=== PATIENT | female | born 1950 | race Caucasian/White ===

== ENCOUNTER → 2024-06-08 | Outpatient (CLI) | payer OTHER | END | disposition home or self-care (01) | LOC: RAH 08:21 | PROVIDERS: ATTEND Family Medicine | DX: Z12.31 Encounter for screening mammogram for malignant neoplasm of breast (principal); D24.1 Benign neoplasm of right breast; R92.333 Mammographic heterogeneous density, bilateral breasts | CPT/HCPCS: 77067 ==

== ENCOUNTER → 2024-08-01 | Outpatient (CLI) | payer OTHER ==
--- NOTE | 2024-08-01 12:31 | HMCIMG ---
COLON BARIUM W/WO KUB REASON: MULTIPLR DIVERTICULA, R/O STRICTURE AT 20CM VS SPASM,INCOMPETE COLONOSCOPY COMPARISON: None TECHNIQUE: Air contrast barium enema was performed with fluoroscopic observation, 4 minutes. Multiple spot views are obtained. Routine overhead views were obtained as well. FINDINGS: There is moderate sigmoid and descending colon diverticulosis. There is initial sigmoid spasm. There is no evidence of a discrete focal mass or fixed stricture. Descending colon appears normal. The transverse colon and splenic flexure appear unremarkable as does the hepatic flexure. Multiple attempts were made to inferior. Passage into the cecum. The right colon is markedly redundant. The cecum does appear filled. There is no evidence of mass or obstructing lesion. IMPRESSION: 1. Technically difficult exam due to sigmoid spasm as well as a sending and hepatic flexure colon redundancy. 2. Moderate sigmoid diverticulosis, there is no evidence of fixed stenosis or mass in the sigmoid colon. 3. Otherwise unremarkable exam as described.
== END | disposition home or self-care (01) ==
LOC: RAH 08:57
PROVIDERS: ATTEND Internal Medicine Gastroenterology
DX: K57.30 Diverticulosis of large intestine without perforation or abscess without bleeding (principal); K58.9 Irritable bowel syndrome, unspecified
CPT/HCPCS: 74270

== ENCOUNTER → 2024-10-24 | Outpatient (CLI) | payer OTHER ==
--- NOTE | 2024-10-24 17:31 | HMCSR ---
APPROVED REPORT EXAM: Two-dimensional and M-mode echocardiogram with Doppler and color Doppler. INDICATION ICD: R06.09, R60.0 2D Dimensions RVDd3.6 cmLVEF(%)55.4 (>50%)LVED Vol(simp.)104.5 mL IVSd1.1 (0.7-1.1cm)FS(%)29 %LVES Vol(simp.)32.9 mL LVDd4.6 (3.8-5.6cm)LA (2D)3.3 (1.6-4.0cm)LVEF(%, simp.)69 % PWd1.2 (0.7-1.1cm)LVOT diam2.0 (1.8-2.4cm)LA ESV INDEX (BP)33.67 mL/m2 IVSs1.3 cmIVC diam1.1 cm LVDs3.3 (2.5-4.0cm) PWs1.6 cm M-Mode Dimensions EPSS0.7 cm LA (MM)3.9 (1.6-4.0cm) Ao Root(MM)2.3 (2.0-3.7cm) Aortic Valve AoV Vmax1.6 m/Sammy Peak GR10.7 mmHgLVOT Vmax1.1 m/s AoV VTI0.3 mAo Mean GR5.7 mmHgLVOT VTI0.26 m SRAVANI (VMAX)2.5 cm2AVA (VTI) 2.5 cm2 Mitral Valve MV E Jsjd490.6 cm/sDECEL Gcdj729 msMV Peak GR11 mmHg MV A Xsnh693.3 cm/sP 1/2 T51 msMV Mean GR4 mmHg E/A ratio1.0MVA (PHT)4.3 cm2 TDI E/E' Sbtmhn46.0 Pulmonary Valve PV Vmax1.2 m/s Left Ventricle The left ventricle is normal size. There is normal LV segmental wall motion. Mild concentric left david tricular hypertrophy. LVEF is 55-60%. Stage II, diastolic dysfunction. Right Ventricle The right ventricle is normal size. The right ventricular systolic function is normal. Atria The left atrium is mildly dilated. The right atrium size is normal. Aortic Valve The aortic valve is normal in structure. No aortic regurgitation is present. There is no aortic valvu lar stenosis. Mitral Valve The mitral valve is mildly thickened. There is no mitral valve regurgitation noted. There is no mary l valve stenosis. Tricuspid Valve The tricuspid valve is normal in structure. There is no tricuspid valve regurgitation noted. Pulmonic Valve Pulmonic valve is not well visualized. There is no pulmonic valvular regurgitation. Great Vessels The aortic root is normal in size. The IVC is normal in size and collapses >50% with inspiration. Pericardium There is no pericardial effusion. Other Information Quality : Adequate Conclusion The left ventricle is normal size. LVEF is 55-60% with normal LV segmental wall motion. Mild concentric left ventricular hypertrophy. Stage II, diastolic dysfunction. The right ventricular systolic function is normal. The left atrium is mildly dilated. No hemodynamically significant valvular abnormalities. There is no pericardial effusion.
== END | disposition home or self-care (01) ==
LOC: RAH 10:59
PROVIDERS: ATTEND Family Medicine
DX: I05.9 Rheumatic mitral valve disease, unspecified (principal); R06.09 Other forms of dyspnea; R60.0 Localized edema
CPT/HCPCS: 93306

== ENCOUNTER → 2024-11-09 | Outpatient (CLI) | payer OTHER ==
--- NOTE | 2024-11-09 16:06 | HMCIMG ---
CT CHEST WITHOUT CONTRAST INDICATION: Solitary pulmonary nodule TECHNIQUE: Routine axial images using 5 mm slice thickness were acquired from the lung apices to the bases without the administration of IV contrast.Coronal and sagittal reformatted images acquired for interpretation. CT was performed with one or more of the following dose reduction techniques: Automated exposure control, adjustment of the mA and/or kV according to patient size, or use of iterative reconstruction technique. COMPARISON: None FINDINGS: Subcentimeter lateral right breast calcification. The heart size is normal. Coronary arterial wall calcific plaque noted. No pericardial effusion noted. Negative torta The trachea and airways are patent. 8 mm smoothly-marginated noncavitary nonspiculated nonfatty nodule noted within the posterolateral periphery of the right lower lobe without any surrounding micronodules. Linear scarring within the right middle lobe and lingula. No axillary, hilar, or mediastinal lymphadenopathy. No pleural effusion or pneumothorax identified. Gallbladder is absent. Visible osseous structures are intact. IMPRESSION: 1. 8 mm subpleural right lower lobe nodule. Please see below for recommendations. 2. No evidence for thoracic aortic aneurysm. 3. Arteriosclerotic disease as described. 2017 Guidelines for Management of Incidental Pulmonary Nodules Detected on CT images: Fleischner Society (Radiology 2017). Single Nodule: LOW RISK PATIENT: <6 mm: No follow-up required. 6-8 mm: Follow-up CT at 6-12 months, then CT at 18-24 months. >8 mm: Consider follow-up CT at 3 months, PET/CT , or tissue sampling. HIGH RISK PATIENT: <6 mm: Optional CT at 12 months. (Certain patients at high risk with suspicious nodule morphology, upper lobe location, or both may warrant 12 month follow-up). 6-8 mm: Follow-up CT at 6-12 months, then CT at 18-24 months. >8 mm: Consider follow-up CT at 3 months, PET/CT , or tissue sampling.
== END | disposition home or self-care (01) ==
LOC: RAH 13:37
PROVIDERS: ATTEND Family Medicine
DX: R91.1 Solitary pulmonary nodule (principal); I25.10 Atherosclerotic heart disease of native coronary artery without angina pectoris
CPT/HCPCS: 71250

== ENCOUNTER → 2024-11-29 | Outpatient (CLI) | payer OTHER ==
--- NOTE | 2024-11-29 15:40 | HMCIMG ---
BONE DENSITOMETRY: HISTORY: Wedge compression fracture of fourth lumbar vertebra, initial encounter for COMPARISON: None available FINDINGS: BMD measured at AP spine L1-L4 is 0.869 g/cm2 with a T-score of -1.6 Bone density is between 10 and 25% below young normal. This patient is considered osteopenic. Fracture risk is moderate. BMD measured at Left Femoral Neck is 0.529 g/cm2 with a T-score of -2.9 This patient is considered osteoporotic according to WHO criteria. Fracture risk is high. BMD measured at Left Femoral Total is 0.617 g/cm2 with a T-score of -2.7 This patient is considered osteoporotic according to WHO criteria. Fracture risk is high. IMPRESSION: Osteoporosis of the left hip. High risk for atraumatic fractures. Treatment and follow-up recommended. Osteopenia of the lumbar spine, moderate fracture risk.
--- NOTE | 2024-11-29 16:05 | HMCIMG ---
MRI LUMBAR SPINE WITHOUT CONTRAST INDICATION: S32.040A Wedge compression fracture of fourth lumbar vertebra, initial encounter COMPARISON: None PARAMETERS: Long and short axis fat and water weighted sequences were obtained through the lumbar spine. FINDINGS: Examination provided for interpretation at 4:00 PM on 11/29/2024. Normal lordosis of the lumbar spine is maintained. Chronic moderate L4 vertebral body compression deformity. Remainder of the lumbar vertebral bodies are normal in height, without evidence for acute compression fracture or osseous marrow replacing process. The conus medullaris is normal in signal and terminates at the appropriate level. Multilevel mild anterior endplate osteophytic spurring. T12-L1: No significant disc displacement, neuroforaminal narrowing, or central canal stenosis. No significant facet disease identified. L1-L2: No significant disc displacement, neuroforaminal narrowing, or central canal stenosis. No significant facet disease identified. L2-L3: Extremely shallow right and left foraminal disc displacement at the L2-L3 level without any significant neuroforaminal narrowing or central canal stenosis. L3-L4: Extremely shallow posterior disc displacement with slightly larger right greater than left foraminal component contributing to mild right neuroforaminal narrowing. L4-L5: Moderate to severe hypertrophic bilateral facet disease and mild to moderate bilateral ligamentum flavum hypertrophy with secondary low-grade (3 mm) central slices of L4 upon L5 as well as nominal bilateral neural foraminal narrowing and severe central canal stenosis with AP dimension of 4.1 mm, including secondary buckling of the cauda equina. L5-S1: Extremely shallow posterior disc displacement without any significant neuroforaminal narrowing or central canal stenosis. Nominal left facet disease. Mild disc desiccation. No evidence for intraannular tear or discitis. The pre- and paraspinous soft tissues appear unremarkable. ANCILLARY FINDINGS: None. IMPRESSION: 1. Severe L4-L5 central canal stenosis with secondary buckling of the cauda equina. 2. Chronic moderate L4 vertebral body compression deformity without superimposed acute component. 3. Level by level analysis, additional minor degenerative changes, and pertinent negatives as reported.
== END | disposition home or self-care (01) ==
LOC: RAH 11:28
PROVIDERS: ATTEND Family Medicine
DX: S32.040A Wedge compression fracture of fourth lumbar vertebra, initial encounter for closed fracture (principal); M47.816 Spondylosis without myelopathy or radiculopathy, lumbar region; M48.061 Spinal stenosis, lumbar region without neurogenic claudication; M81.0 Age-related osteoporosis without current pathological fracture; X58.XXXA Exposure to other specified factors, initial encounter; Y93.89 Activity, other specified; Y92.89 Other specified places as the place of occurrence of the external cause; Y99.8 Other external cause status
CPT/HCPCS: 72148; 77080

== ENCOUNTER 2025-05-04 16:25 | Emergency (ER) | payer OTHER ==
[~2025-05-04] VITALS: Ht 160 cm; Wt 67.2 kg
--- NOTE | 2025-05-04 17:01 | NUR ---
PT PRESENTS WITH 2 SMALL WOUNDS TO RIGHT LOWER LEG, SKIN IS DRY AND AT ROOM TEMP. WOUNDS ARE NON-PURULENT, NO DRAINAGE NOTED. PT PRESENTS WITH ONE SMALL WOUND TO LEFT LOWER EXTREMITY, NON-PURULENT WITH NO DRAINAGE. PT SKIN HAS INTACT SCAB IN PLACE, SKIN IS DRY AND AT ROOM TEMP.
[2025-05-04 17:02] LABS: IMMATURE GRANULOCYTE ABSOLUTE 0.03 K/uL (0-1); NUCLEATED RED BLOOD CELLS 0.0 % (0.0-0.19); PLATELET COUNT (AUTO) 189 K/uL (130-400); RED BLOOD CELL COUNT(AUTO) 4.35 MIL/uL (4.00-5.50); RED CELL DISTRIBUTION WIDTH 12.9 % (11.0-15.5); WHITE BLOOD COUNT (AUTO) 8.7 K/uL (4.8-10.8)
--- NOTE | 2025-05-04 17:06 | ERN ---
ED Note History of Present Illness Stated Complaint: WOUNDS Chief Complaint: Wound Check Time Seen by MD: 16:26 Dictation: 74 yo female with PMH of DM, HTN, Chornic ulcer in the right leg x 3 months , comes to ER as she says that PCP international exchange coordinator recommended her to comes to emergency department to have wound checked. Denies fever or chills. Allergies: Coded Allergies: Penicillins (Unverified Allergy, Unknown, 05/04/25) Home Meds Active Scripts Levofloxacin (Levofloxacin) 500 Mg Tablet, 1 TAB PO DAILY for 5 Days, #5 TAB 0 Refills Prov:SOFI DUBOIS MD 05/04/25 Clindamycin HCl (Clindamycin HCl) 300 Mg Capsule, 1 CAP PO TID for 7 Days, #21 CAP 0 Refills Prov:SOFI DUBOIS MD 05/04/25 Mupirocin Calcium (Bactroban 2% Cream) 2 % Crm, 1 APPL TP TID for 7 Days, #22 GM 0 Refills apply to affected area(s) Prov:SOFI DUBOIS MD 05/04/25 Past Medical History Past Medical History: Diabetes-Type II, High Cholesterol, Heart Disease, Hypertension Surgical History: Review of System Dictation A 14 point ROS was obtained all relevant positive documented otherwise ROS negative Initial Vital Sign VS Vital Signs Date Time Temp Pulse Resp B/P (MAP) Pulse Ox O2 Delivery O2 Flow Rate FiO2 05/04/25 16:30 98.4 74 16 198/81 97 Room Air 0 05/04/25 16:34 21 Physical Exam Dictation A & O x 3 Afebrile RRR, Chest: Sounds congestive Soft abdomen Ext: Right lower extremity has 2 superficial wound , no erythema, no edema, no rubor/ Results (Laboratory/Radiology) Laboratory/Radiology Laboratory Tests Test 05/04/25 16:55 White Blood Count 8.7 K/uL (4.8-10.8) Red Blood Count 4.35 MIL/uL (4.00-5.50) Hemoglobin 13.5 g/dL (12.0-16.0) Hematocrit 40.1 % (36-48) Mean Corpuscular Volume 92.2 fL (79-99) Mean Corpuscular Hemoglobin 31.0 pg (27.0-33.0) Mean Corpuscular Hemoglobin Concent 33.7 g/dL (32.0-36.0) Red Cell Distribution Width 12.9 % (11.0-15.5) Platelet Count 189 K/uL (130-400) Mean Platelet Volume 12.6 fL (7.5-10.5) H Immature Granulocyte % (Auto) 0.3 % (0-1) Neutrophils (%) (Auto) 71.9 % (40.0-77.0) Lymphocytes (%) (Auto) 17.5 % (21.0-51.0) L Monocytes (%) (Auto) 7.8 % (3.0-13.0) Eosinophils (%) (Auto) 1.8 % (0.0-8.0) Basophils (%) (Auto) 0.7 % (0.0-5.0) Neutrophils # (Auto) 6.2 K/uL (1.8-7.7) Lymphocytes # (Auto) 1.5 K/uL (1.0-4.8) Monocytes # (Auto) 0.7 K/uL (0.1-1.0) Eosinophils # (Auto) 0.16 K/uL (0.00-0.70) Basophils # (Auto) 0.06 K/uL (0.00-0.20) Absolute Immature Granulocyte (auto 0.03 K/uL (0-1) Nucleated Red Blood Cells 0.0 % (0.0-0.19) Sodium Level 135 mmol/L (136-145) L Potassium Level 4.5 mmol/L (3.5-5.1) Chloride Level 99 mmol/L (101-111) L Carbon Dioxide Level 33 mmol/L (21-32) H Blood Urea Nitrogen 9 mg/dL (7-18) Creatinine 0.7 mg/dL (0.5-1.0) Glomerular Filtration Rate Calc 92 mL/min (>90) Random Glucose 404 mg/dL (70-105) *H Total Calcium 8.7 mg/dL (8.5-10.1) ED Course ED Course Orders Procedure Category Date Status Time Cbc With Differential LAB 05/04/25 Complete 16:53 Basic Metabolic Panel LAB 05/04/25 Complete 16:53 Bacitracin PHA 05/04/25 Complete (Bacitracin) 17:30 Clindamycin 150mg Cap PHA 05/04/25 Complete (Cleocin 150mg Cap 17:30 Insulin Regular, PHA 05/04/25 Complete Human 3ml (Humulin R 17:30 0.9%Nacl 1000ml (Ns PHA 05/04/25 In Process 1000ml) 17:30 Current Medications Medications (Trade) Dose Ordered Sig/Vikram Route PRN Reason Start Time Stop Time Status Last Admin Dose Admin Bacitracin (Bacitracin) 1 each ONCE ONCE TP 05/04/25 17:30 05/04/25 17:31 DC 05/04/25 17:22 Clindamycin HCl (Cleocin 150mg Cap) 300 mg ONCE ONCE PO 05/04/25 17:30 05/04/25 17:31 DC 05/04/25 17:22 Insulin Human Regular (humuLIN R 100 UNIT/ML 3ML) 10 unit ONCE ONCE IV 05/04/25 17:30 05/04/25 17:31 DC 05/04/25 17:46 Sodium Chloride 1,000 ml @ 0 mls/hr Q0M IV 05/04/25 17:30 06/03/25 17:29 05/04/25 17:45 Vital Signs Date Time Temp Pulse Resp B/P (MAP) Pulse Ox O2 Delivery O2 Flow Rate FiO2 05/04/25 16:34 98.4 74 16 198/81 97 Room Air* 0 21 05/04/25 16:30 98.4 74 16 198/81 97 Room Air 0 Medical Decision Making MDM 1- Vascular wound in the setting of diabetes Mellitus CBC, BMP - Bactroban cream - clean wound and apply dressing Clindamycin PO once Wound care referral outpatient. 2. Diabetes Mellitus uncontrolled Glucose 400 dl - insulin reg 10 units iv - NS 1000ml bolus DX & DISP Disposition: Discharge Departure Impression: Primary Impression: Wound of left leg Additional Impressions: Diabetes, Hypertension, Hyperglycemia Condition: Stable Scripts Levofloxacin (Levofloxacin) 500 Mg Tablet 1 TAB PO DAILY for 5 Days, #5 TAB 0 Refills Prov: SOFI DUBOIS MD 05/04/25 Clindamycin HCl (Clindamycin HCl) 300 Mg Capsule 1 CAP PO TID for 7 Days, #21 CAP 0 Refills Prov: SOFI DUBOIS MD 05/04/25 Mupirocin Calcium (Bactroban 2% Cream) 2 % Crm 1 APPL TP TID for 7 Days, #22 GM 0 Refills apply to affected area(s) Prov: SOFI DUBOIS MD 05/04/25 Additional Instructions: Please follow up with PCP in the next 48 hours F/U with Wound care team outpatient Dr. blackwell Referrals: ASHA BOOGIE M.D. (PCP) JOSEPH BOLIVAR MD Time of Disposition: 18:22 SOFI DUBOIS MD May 04, 2025 17:06
[2025-05-04] MEDS ORDERED: CLIN-141 PO (17:11)
[2025-05-04] MEDS ORDERED: MUPI15C TP (17:11)
[2025-05-04] MEDS ORDERED: LEVO-70 PO (17:11)
[2025-05-04 17:13] LABS: CREATININE 0.7 mg/dL (0.5-1.0); GLOMERULAR FILTR. RATE CALC 92.0 mL/min (>90); SODIUM SERUM 135.0 mmol/L (136-145); UREA NITROGEN, BLOOD 9.0 mg/dL (7-18)
[2025-05-04 17:18] LABS: GLUCOSE,RANDOM 404.0 mg/dL (70-105)
[2025-05-04] MEDS: BACITRACIN 1 EACH PACKET TP ONE (17:22)
[2025-05-04] MEDS: CLINDAMYCIN 150 MG CAP PO ONE (17:22)
[2025-05-04] MEDS: 0.9%NACL 1000ML 1,000 ML IV SCH (17:45)
[2025-05-04 18:59] VITALS: BP 160/85; PULSE 75; RESP 16; TEMP 98.4; O2SAT 97
== END 2025-05-04 19:12 | disposition home or self-care (01) ==
LOC: EDH 16:25
DX: L97.919 Non-pressure chronic ulcer of unspecified part of right lower leg with unspecified severity (principal); E11.65 Type 2 diabetes mellitus with hyperglycemia; E78.00 Pure hypercholesterolemia, unspecified; I11.9 Hypertensive heart disease without heart failure; Z88.0 Allergy status to penicillin; Z79.899 Other long term (current) drug therapy
CPT/HCPCS: 99284; 96374; 80048; 85025; 82948; 36415; J1815; J7030; 99283

== ENCOUNTER 2025-05-13 09:59 | Observation (INO) | payer OTHER ==
[~2025-05-13] VITALS: Ht 160 cm; Wt 65.8 kg
[~2025-05-13 09:59] MED LIST: CLIN-141 PO; LEVO-70 PO; MUPI15C TP
--- NOTE | 2025-05-13 10:12 | ERN ---
ED Note History of Present Illness Stated Complaint: CHEST PAIN Chief Complaint: Chest Pain Time Seen by MD: 10:01 Dictation: PATIENT IS A 74-YEAR-OLD FEMALE COMING IN VIA EMS WITH COMPLAINTS OF SUBSTERNAL CHEST PAIN THAT DOES NOT RADIATE ONSET THIS MORNING SHE DENIES NAUSEA VOMITING NO ARM PAIN NO JAW PAIN NO BACK PAIN. DOES STATE SHE HAS A HISTORY OF CORONARY ARTERY DISEASE. Allergies: Coded Allergies: Penicillins (Unverified Allergy, Unknown, 05/04/25) Home Meds Active Scripts Levofloxacin (Levofloxacin) 500 Mg Tablet, 1 TAB PO DAILY for 5 Days, #5 TAB 0 Refills Prov:SOFI DUBOIS MD 05/04/25 Clindamycin HCl (Clindamycin HCl) 300 Mg Capsule, 1 CAP PO TID for 7 Days, #21 CAP 0 Refills Prov:SOFI DUBOIS MD 05/04/25 Mupirocin Calcium (Bactroban 2% Cream) 2 % Crm, 1 APPL TP TID for 7 Days, #22 GM 0 Refills apply to affected area(s) Prov:SOFI DUBOIS MD 05/04/25 Past Medical History Past Medical History: Diabetes-Type II, High Cholesterol, Heart Disease, Hypertension Surgical History: History: Not Applicable RN Note Reviewed/Agreed w/PFSH: Yes Review of System Dictation CONSTITUTIONAL: NEGATIVE EXCEPT FOR HPI HEAD/FACE: NEGATIVE EXCEPT FOR HPI EENT: NEGATIVE EXCEPT FOR HPI RESPIRATORY: NEGATIVE EXCEPT FOR HPI SUBSTERNAL CHEST PAIN NONRADIATING GASTROINTESTINAL/ABDOMINAL: NEGATIVE EXCEPT FOR HPI GENITOURINARY: NEGATIVE EXCEPT FOR HPI MUSCULOSKELETAL: NEGATIVE EXCEPT FOR HPI INTEGUMENTARY: NEGATIVE EXCEPT FOR HPI BILATERAL LOWER EXTREMITY STASIS ULCERS WITH DRESSINGS NEUROLOGICAL/PSYCH: NEGATIVE EXCEPT FOR HPI HEMATOLOGIC/LYMPHATIC: NEGATIVE EXCEPT FOR HPI ALL SYSTEMS NEGATIVE, EXCEPT NOTED ABOVE. 13 POINT REVIEW OF SYSTEMS ASSESSED AND ALL NEGATIVE EXCEPT FOR ABOVE. Initial Vital Sign VS Vital Signs Date Time Temp Pulse Resp B/P (MAP) Pulse Ox O2 Delivery O2 Flow Rate FiO2 05/13/25 10:01 98.1 66 20 130/82 99 Room Air 05/13/25 10:38 0 21 Physical Exam Dictation VITAL SIGNS REVIEWED GENERAL APPEARANCE: ALERT, ORIENTED X 3, MILD ACUTE DISTRESS, WELL DEVELOPED, NOURISHED. HEAD AND FACE: NON-TRAUMATIC. EYES: PERRL, PINK CONJUNCTIVAS, EYELID NO TRAUMA, ANTERIOR CHAMBER WITH ARCUS SENILIS. EARS: PINNAS INTACT AND NO SIGNS OF TRAUMA OR ERYTHEMA EAR CANALS CLEAR AND NO DISCHARGE TM NO ERYTHEMA NOSE: NO DISCHARGE, NO BLEEDING. OROPHARYNX: MOUTH NORMAL, TONGUE PINK, PHARYNX CLEAR,NO ERYTHEMA, TONSILS NO EXUDATES, NO ABSCESSES NOTED, MUCOUS MEMBRANE MOIST NECK: SUPPLE, NON-TENDER, NO THYROMEGALY, NO MASSES, NO JVD, NO BRUITS BREAST:DEFERRED CHEST:NO TENDERNESS, NO CREPITUS, NO PARADOXICAL MOVEMENT, NO RETRACTIONS LUNGS:CLEAR, WELL-VENTILATED, SYMMETRIC, NO RALES, NO WHEEZING, NO RHONCHI, NO STRIDOR, GOOD BREATH SOUNDS BILATERALLY HEART: REGULAR RATE, REGULAR RHYTHM, NO MURMUR, NO GALLOPS VASCULAR: NO PERIPHERAL EDEMA, ABDOMEN: SOFT, POSITIVE BOWEL SOUNDS, NONDISTENDED, NO GUARDING, NONTENDER, NO REBOUND, NO MASSES NO HEPATOMEGALY, NO SPLENOMEGALY, NO MAYER'S SIGN, NO HERNIAS. RECTAL: DEFERRED GENITAL: DEFERRED NEUROLOGICAL: NORMAL SPEECH, MOTOR FUNCTION INTACT, SENSORY FUNCTION INTACT MUSCULOSKELETAL: NECK NONTENDER, FULL RANGE OF MOTION, BACK NONTENDER, FULL RANGE OF MOTION, EXTREMITIES: N PATIENT HAS TO MEDIAL STAGE II ULCERS WITH A ERYTHEMA TO MEDIAL RIGHT CALF. ONE STASIS ULCER STAGE II TO LEFT MEDIAL CALF. NO DRAINAGE DISTAL NEUROVASCULAR CMS INTACT SKIN: COLOR PINK, DRY, NO TURGOR, NO RASH, NO LACERATIONS, NO ABRASIONS, NO CONTUSIONS. LYMPHATIC: DEFERRED Results (Laboratory/Radiology) Laboratory/Radiology Laboratory Tests Test 05/13/25 10:31 White Blood Count 13.4 K/uL (4.8-10.8) H Red Blood Count 4.73 MIL/uL (4.00-5.50) Hemoglobin 14.7 g/dL (12.0-16.0) Hematocrit 42.6 % (36-48) Mean Corpuscular Volume 90.1 fL (79-99) Mean Corpuscular Hemoglobin 31.1 pg (27.0-33.0) Mean Corpuscular Hemoglobin Concent 34.5 g/dL (32.0-36.0) Red Cell Distribution Width 13.5 % (11.0-15.5) Platelet Count 251 K/uL (130-400) Mean Platelet Volume 12.6 fL (7.5-10.5) H Immature Granulocyte % (Auto) 0.4 % (0-1) Neutrophils (%) (Auto) 77.9 % (40.0-77.0) H Lymphocytes (%) (Auto) 13.2 % (21.0-51.0) L Monocytes (%) (Auto) 6.6 % (3.0-13.0) Eosinophils (%) (Auto) 1.2 % (0.0-8.0) Basophils (%) (Auto) 0.7 % (0.0-5.0) Neutrophils # (Auto) 10.4 K/uL (1.8-7.7) H Lymphocytes # (Auto) 1.8 K/uL (1.0-4.8) Monocytes # (Auto) 0.9 K/uL (0.1-1.0) Eosinophils # (Auto) 0.16 K/uL (0.00-0.70) Basophils # (Auto) 0.10 K/uL (0.00-0.20) Absolute Immature Granulocyte (auto 0.05 K/uL (0-1) Nucleated Red Blood Cells 0.0 % (0.0-0.19) Sodium Level 139 mmol/L (136-145) Potassium Level 3.6 mmol/L (3.5-5.1) Chloride Level 100 mmol/L (101-111) L Carbon Dioxide Level 34 mmol/L (21-32) H Blood Urea Nitrogen 12 mg/dL (7-18) Creatinine 0.8 mg/dL (0.5-1.0) Glomerular Filtration Rate Calc 78 mL/min (>90) Random Glucose 179 mg/dL (70-105) H Lactic Acid Level 2.0 mmol/L (0.8-2.5) Total Calcium 9.0 mg/dL (8.5-10.1) Magnesium Level 1.70 mg/dL (1.80-2.40) L Troponin I High Sensitivity 22 ng/L (4-50) CLINICAL HISTORY: CHEST PAIN COMPARISON: None provided. FINDINGS: LUNGS: The lungs show no infiltrate or other acute finding. PLEURAL SPACES: No evidence of pleural effusion or pneumothorax. MEDIASTINUM: Cardiac size and mediastinal contours within normal limits. BONES: No aggressive appearing osseous lesion seen. IMPRESSION: No acute cardiopulmonary pathology is evident. U Labs Reviewed?: Yes EKG Comment: EKG SINUS RHYTHM/HEART RATE 60/AXIS NORMAL/RIGHT BUNDLE BRANCH BLOCK ED Course ED Course Orders Procedure Category Date Status Time Blood Cult MICHAEL 05/13/25 In Process 10:10 Lactic Acid LAB 05/13/25 Complete 10:10 Cbc With Differential LAB 05/13/25 Complete 10:10 Chest 1vw RAD 05/13/25 Resulted 10:10 12 Lead Ekg Tracing- EKG 05/13/25 Complete Technical 10:10 Magnesium LAB 05/13/25 Complete 10:10 Troponin I High LAB 05/13/25 Complete Sensitivity 10:10 Aspirin 325mg Tab PHA 05/13/25 Complete (Aspirin 325mg Tab) 10:30 Basic Metabolic Panel LAB 05/13/25 Complete 10:10 Levofloxacin 500 PHA 05/13/25 In Process Mg/D5w 100 Ml 11:20 Current Medications Medications (Trade) Dose Ordered Sig/Vikram Route PRN Reason Start Time Stop Time Status Last Admin Dose Admin Aspirin (Aspirin 325mg Tab) 325 mg ONCE ONCE PO 05/13/25 10:30 05/13/25 10:31 DC Levofloxacin/ Dextrose 100 ml @ 100 mls/hr ONCE STAT IV 05/13/25 11:20 05/13/25 12:19 Vital Signs Date Time Temp Pulse Resp B/P (MAP) Pulse Ox O2 Delivery O2 Flow Rate FiO2 05/13/25 10:38 98.1 56 18 116/52 95 Room Air* 0 21 05/13/25 10:01 98.1 66 20 130/82 99 Room Air 1120/PATIENT HAS A AN ACUTE ON ACUTE KIDNEY INJURY, GFR IS 78, LAST VISIT TO THE EMERGENCY ROOM ON 04/29 IT WAS 92%. IN ADDITION LACTIC ACID IS 2% WITH A 28372 WBCS AND PATIENT JUST FINISHED UP CLINDAMYCIN FOR HER ULCERS TO HER LEGS. WE WILL ADMIT PATIENT FOR OUTPATIENT TREATMENT FAILURE, ACUTE KIDNEY INJURY LACTIC ACIDOSIS DEHYDRATION CHEST [id number]/ 1130/SPOKE WITH [facility] HOSPITALIST REVIEWED EKG LABS CHEST X-RAY AND INTERVENTIONS FOR OUTPATIENT TREATMENT FAILURE SEPSIS. HE AGREED TO ADMIT PATIENT. HEART Score Response (Comments) Value EKG: Repolarization changes 1 Age: > 65yrs (+2) 2 Risk Factors: 3+ risk factors (+2) 2 Initial Troponin: Normal limit (0) 0 Total 5 Medical Decision Making MDM MDM: DIFFERENTIAL DIAGNOSIS: ACS/AMI/PNEUMONIA/BRONCHITIS/ELECTROLYTE IMBALANCE/DEHYDRATION/STASIS ULCERS BILATERAL LOWER EXTREMITIES. RATIONALE: TESTS CONSIDERED AND ORDERED SECONDARY TO SHARED DECISION MAKING INCLUDE: LABS, ECG AND RADIOLOGY PREVIOUS OUTSIDE RECORDS REVIEWED: OLD ER VISITS. RISK OF COMPLICATION AND/OR MORBIDITY OR MORTALITY OF PATIENT MANAGEMENT: N MOD ERATE MEDICATIONS-PER MEDICATION RECONCILIATION NEED FOR HOSPITALIZATION: PATIENT DOES MEET CRITERIA FOR HOSPITALIZATION. PATIENT WILL NEED REHYDRATION POSSIBLE INFECTION DISEASE CONSULTATION FOR LOWER EXTREMITY WOUNDS AND OUTPATIENT TREATMENT FAILURE NEED FOR EMERGENCY MAJOR/MINOR SURGERY: NO THERE ARE NO SOCIAL CONCERNS WITH THIS PATIENT. PRESCRIPTION DRUG MANAGEMENT PRESCRIPTIONS WILL INCLUDE SYMPTOMATIC CARE PATIENT'S PRIOR EXTERNAL MEDICAL RECORDS FROM OTHER ER VISITS WERE REVIEWED BY ME INDICATED. PRIOR TESTING AND RESULTS FROM PREVIOUS VISITS WERE REVIEWED. PRIOR TESTS WERE TAKEN INTO ACCOUNT WITH MEDICAL DECISION MAKING AND RESOURCE UTILIZATION, INDEPENDENT HISTORIAN/HISTORIANS WERE USED TO OBTAIN COMPLETE MED [facility]. I INDEPENDENTLY INTERPRETED THE TEST THAT WERE PERFORMED, RESULTS WERE REVIEWED BY ME AND CONSIDERED FINDINGS ON RADIOLOGY IF ORDERED. MEDICAL MANAGEMENT AND EXAMINATION INTERPRETATION DISCUSSIONS WERE HAD BY ME WITH OTHER QUALIFIED HEALTHCARE PROFESSIONALS INDICATED FOR THE PATIENT'S CARE. DX & DISP Disposition: Inpatient Decision to Admit Time: 11:23 Departure Impression: Primary Impression: Atypical chest pain Additional Impressions: Venous stasis ulcers of both lower extremities, Failure of outpatient treatment, Acute kidney injury, Dehydration, Lactic acid acidosis, Hypochloremia, Uncontrolled diabetes mellitus Condition: Stable Referrals: ASHA BOOGIE M.D. (PCP) Time of Disposition: 11:23 I have reviewed the case, and I agree with, Diagnosis and Plan SANTI MCFADDEN NP May 13, 2025 10:12
[2025-05-13 10:38] LABS: IMMATURE GRANULOCYTE ABSOLUTE 0.05 K/uL (0-1); NUCLEATED RED BLOOD CELLS 0.0 % (0.0-0.19); PLATELET COUNT (AUTO) 251 K/uL (130-400); RED BLOOD CELL COUNT(AUTO) 4.73 MIL/uL (4.00-5.50); RED CELL DISTRIBUTION WIDTH 13.5 % (11.0-15.5); WHITE BLOOD COUNT (AUTO) 13.4 K/uL (4.8-10.8)
[2025-05-13 11:04] LABS: CREATININE 0.8 mg/dL (0.5-1.0); GLOMERULAR FILTR. RATE CALC 78.0 mL/min (>90); GLUCOSE,RANDOM 179.0 mg/dL (70-105); SODIUM SERUM 139.0 mmol/L (136-145); UREA NITROGEN, BLOOD 12.0 mg/dL (7-18)
--- NOTE | 2025-05-13 11:12 | HMCIMG ---
EXAM: CR Chest, 1 View. CLINICAL HISTORY: CHEST PAIN COMPARISON: None provided. FINDINGS: LUNGS: The lungs show no infiltrate or other acute finding. PLEURAL SPACES: No evidence of pleural effusion or pneumothorax. MEDIASTINUM: Cardiac size and mediastinal contours within normal limits. BONES: No aggressive appearing osseous lesion seen. IMPRESSION: No acute cardiopulmonary pathology is evident. /[place]
--- NOTE | 2025-05-13 11:13 | EKG ---
[facility] Test Date: 2025-05-13 Test Time: 10:17:39 Pat Name: ALANIS WEST Department: ED Room: Gender: F Market Development Manager: [id number] : 1950 Requested By: SANTI MCFADDEN Order Number: [id number] Reading MD: Yanci Almeida Measurements Intervals [place] Rate: 60 P: 86 CO: 128 QRS: 87 QRSD: 170 T: 209 QT: 481 QTc: 480 Interpretive Statements Sinus rhythm Right bundle branch block No previous ECG available for comparison Electronically Signed On 05-13-2025 12:33:19 CDT by Yanci Almeida Please click the below link to view image of tracing.
[2025-05-13] MEDS: ASPIRIN 325MG TAB PO ONE (12:10)
[2025-05-13] MEDS: BACITRACIN 1 EACH PACKET TP ONE (14:18)
[2025-05-13] MEDS ORDERED: BENZOCAINE/MENTH/CETYLPYRD CL 1 EACH LOZENGE MM PRN (16:00)
[2025-05-13] MEDS ORDERED: LOPERAMIDE HCL 2 MG CAP PO PRN (16:00)
[2025-05-13] MEDS ORDERED: ARTIFICAL TEARS SOL 15 ML OP PRN (16:00)
[2025-05-13] MEDS ORDERED: NITROGLYCERIN 0.4 MG SL TAB SL PRN (16:00)
[2025-05-13] MEDS ORDERED: LIDOCAINE HCL 2% VISCOUS 30 ML, MAG/ALUM/SIMETH 30ML 30 ML, DICYCLOMINE HCL 20 MG PO PRN (16:00)
[2025-05-13] MEDS ORDERED: MAG/ALUM/SIMETH 30 ML UDCUP PO PRN (16:00)
[2025-05-13] MEDS ORDERED: LACTULOSE 20 GM/30 ML UDCUP PO PRN (16:00)
[2025-05-13] MEDS ORDERED: guaiFENesin-DM 200/20MG 10ML PO PRN (16:00)
--- NOTE | 2025-05-13 18:17 | HP ---
[facility] HISTORY & PHYSICAL Date Patient Seen: May 13, 2025 Time of Visit: 18:17 Supervising Physician: Dr. Piedra Primary Care Physician: Dr. Zaida Case Outpatient Specialists: Inpatient Consults: PROBLEM LIST: Atypical chest pain, POA Venous stasis ulcers of both lower extremities Failure of outpatient treatment Acute kidney injury Dehydration Lactic acid acidosis Hypochloremia Uncontrolled diabetes mellitus Chronic problem list: Coronary artery disease, diabetes-type II, high cholesterol, heart disease, hypertension HPI: Ms. Medrano is a 74 year old female with a history of coronary artery disease, diabetes-type II, high cholesterol, heart disease, hypertension who presented with [facility] via EMS for evaluation of substernal chest pain that does not radiate onset this morning. She denies nausea and vomiting. The patient reports chronic shortness of breath with exertion that is the same. Patient report that she has wounds in her bilateral lower distal extremities, but have improved. VS: HR 66 bpm, RR 20 bpm, BP 130/82, 99% RA, 98.1 F. Labs: Chemistry: Chloride 100, Carbon Dioxide 34, Random Glucose 179, Magnesium 1.70, Hematology: WBC 13.4, MPV 12.6, Chest X-Ray: No acute cardiopulmonary pathology is evident. EKG: Sinus rhythm, right BBB. In ED the received bacitracin, Levaquin IV, and aspirin. ED provider requested patient be admitted to the hospital with the diagnosis of atypical chest pain, venous stasis ulcers of both lower extremities, failure of outpatient treatment, acute kidney injury, dehydration, lactic acid acidosis, hypochloremia, uncontrolled diabetes mellitus I assessed the patient at bedside in ED 16. The patient's breathing was even, unlabored, in no distress. I informed patient of labs, diagnostics, and plan of care. She verbalized understanding and is in agreement with the plan. Plan and assessment are listed below. PAST MEDICAL HX: see above PAST SURGICAL HX: SOCIAL HISTORY: No tobacco, ETOH, or illicit drug use Coded Allergies: Penicillins (Unverified Allergy, Unknown, 05/04/25) REVIEW OF SYSTEMS: 12 point ROS reviewed with patient. Pertinent positives mentioned above. Otherwise negative. PHYSICAL EXAM: GENERAL: alert, weak, awake oriented x 3 HEENT: EOMI, Sclera non icteric, moist mucosa NECK: Supple, no JVD, trachea midline LUNGS: Clear breath sounds bilaterally. No wheezes HEART: Regular rate and rhythm. Normal S1 and S2, without murmurs ABD: Abdomen soft, nontender. Bowel sounds present EXT: No clubbing cyanosis or edema. Medial stage II ulcer with erythema to medial right calf. One stasis ulcer stage II to left medial cald. No drainage. Distal neurovascular CMS intact. NEURO: Alert and oriented to person, follows commands Vital Signs (last 8hr) Date Time Temp Pulse Resp B/P (MAP) Pulse Ox O2 Delivery O2 Flow Rate FiO2 05/13/25 10:38 98.1 56 18 116/52 95 Room Air* 0 21 LABS: Hematology Labs: Test 05/13/25 10:31 Range/Units White Blood Count 13.4 H 4.8-10.8 K/uL Red Blood Count 4.73 4.00-5.50 MIL/uL Hemoglobin 14.7 12.0-16.0 g/dL Hematocrit 42.6 36-48 % Mean Corpuscular Volume 90.1 79-99 fL Mean Corpuscular Hemoglobin 31.1 27.0-33.0 pg Mean Corpuscular Hemoglobin Concent 34.5 32.0-36.0 g/dL Red Cell Distribution Width 13.5 11.0-15.5 % Platelet Count 251 130-400 K/uL Mean Platelet Volume 12.6 H 7.5-10.5 fL Immature Granulocyte % (Auto) 0.4 0-1 % Neutrophils (%) (Auto) 77.9 H 40.0-77.0 % Lymphocytes (%) (Auto) 13.2 L 21.0-51.0 % Monocytes (%) (Auto) 6.6 3.0-13.0 % Eosinophils (%) (Auto) 1.2 0.0-8.0 % Basophils (%) (Auto) 0.7 0.0-5.0 % Neutrophils # (Auto) 10.4 H 1.8-7.7 K/uL Lymphocytes # (Auto) 1.8 1.0-4.8 K/uL Monocytes # (Auto) 0.9 0.1-1.0 K/uL Eosinophils # (Auto) 0.16 0.00-0.70 K/uL Basophils # (Auto) 0.10 0.00-0.20 K/uL Absolute Immature Granulocyte (auto 0.05 0-1 K/uL Nucleated Red Blood Cells 0.0 0.0-0.19 % Chemistry Labs: Test 05/13/25 10:31 Range/Units Sodium Level 139 136-145 mmol/L Potassium Level 3.6 3.5-5.1 mmol/L Chloride Level 100 L 101-111 mmol/L Carbon Dioxide Level 34 H 21-32 mmol/L Blood Urea Nitrogen 12 7-18 mg/dL Creatinine 0.8 0.5-1.0 mg/dL Glomerular Filtration Rate Calc 78 >90 mL/min Random Glucose 179 H 70-105 mg/dL Lactic Acid Level 2.0 0.8-2.5 mmol/L Total Calcium 9.0 8.5-10.1 mg/dL Magnesium Level 1.70 L 1.80-2.40 mg/dL Troponin I High Sensitivity 22 4-50 ng/L DIAGNOSTICS / RADIOLOGY RESULTS: [ ] PLAN -Admit to medical floor with tele pack. -Obtain wound aerobic and anaerobic cultures. -Follow blood and wound cultures. -Continue Levaquin. -Troponin levels and EKG series. -Echo. -Aspirin and Atorvastatin. -PRN medications for pain management, fever, N/V, constipation, hypertension. -Oxygen supplement as needed to maintain oxygen levels equal to or greater than 92% -Strict I&O. -Blood pressure checks every 4 hours and as needed. -Reconcile home medications once available. -Glucometer checks before meals and at bedtime with insulin regular sliding scale. -Blood pressure checks every 4 hours and as needed. - Monitor renal and liver function. -Monitor electrolytes and treat accordingly PRN -AM labs. -GI and DVT prophylaxis -Further plan/orders per hospitalization course. NEURO: Minimize central acting medications as possible. Maintain fall precautions, adequate lighting during the day PULMONARY: Supplemental 02 as needed. Maintain aspiration precautions at all times CARDIOVASCULAR: Follow hemodynamics. Vital signs per facility protocol GI & NUTRITION: Continue with nutritional support. Continue stool softeners and laxatives as needed. KIDNEYS & ELECTROLYTES: Strict monitoring of intake, output and overall fluid balance. Avoid nephrotoxic medications to the extent possible. Medications to be dosed according to renal function. Monitor electrolytes and replace as needed ENDOCRINE: Maintain blood glucose between 100-180 at all times. Hypoglycemia protocol in place INFECTIOUS DISEASE: Trend temperature, WBC and procalcitonin level Follow cultures, deescalate antibiotics as soon as possible. Panculture if new onset fever ONCOLOGY/HEMATOLOGY/COAGULATION: Monitor for s/s of bleeding Monitor hemoglobin, coagulation studies as needed SKIN: Pressure ulcer prevention per facility protocol Specialty mattress ORTHO/REHAB: Continue PT/OT Prophylaxis: Continue GI and DVT prophylaxis Code Status: Full Resuscitation Disposition: TBD Other: Total patient care time exceeds 35 minutes excluding all procedures. ATTESTATION BY PHYSICIAN I attest that I reviewed and discussed the case with the Physician Nursing Admin as well as agree with the Physician Nursing Admin's findings, plans of care, and documentation above. Chris Ogden MD, [facility]UCIA [facility] May 13, 2025 18:17
[2025-05-13 20:00] VITALS: BP 126/55; PULSE 68; RESP 20; TEMP 97.7
[2025-05-13] MEDS ORDERED: OLME40TA18 PO (20:28)
[2025-05-13] MEDS ORDERED: TRIA430O4 TP (20:28)
[2025-05-13] MEDS ORDERED: METF-444 PO (20:28)
[2025-05-13] MEDS ORDERED: DULO30CA52 PO (20:28)
[2025-05-13] MEDS ORDERED: AZIT500T4 PO (20:28)
[2025-05-13] MEDS ORDERED: LOVA20TA3 PO (20:28)
[2025-05-13] MEDS ORDERED: PREG25CA19 PO (20:28)
[2025-05-13] MEDS ORDERED: MONT-46 PO (20:28)
[2025-05-13] MEDS ORDERED: CLON1PAT12 TD (20:28)
[2025-05-13] MEDS ORDERED: EMPA10TA PO (20:28)
[2025-05-13] MEDS: FAMOTIDINE 20MG TAB PO SCH (21:00)
[2025-05-14] VITALS (9 sets, daily range): BP systolic 130–168; BP diastolic 60–76; PULSE 54–72; RESP 14–18; TEMP 97.7–98.6; O2SAT 94–99
[2025-05-14] MEDS: ASPIRIN 81MG CHEW TAB PO SCH (08:49)
--- NOTE | 2025-05-14 08:52 | NUR ---
DCP: HOME WITH [facility] met with pt who lives at home with her Severiano Medrano [phone], their daughter Paola Glover [phone] and their grand daughter. Pt states she is independent of her ADLS, drives, family assists with home management and meal prep. Pt has cane, walker with seat, w/c, shower chair, and nebulizer. Currently has [facility] for daily wound care and wants to continue with HH at [facility]. Consent was signed, on chart. PCP is Carola Cerda and uses [facility] for rx. MIP is home with . saavnna CHRISTIANSON made aware. Addendum: 05/14/25 at 0900 by CARLIN HAN Amended: Links added.
[2025-05-14 10:34] LABS: NUCLEATED RED BLOOD CELLS 0.0 % (0.0-0.19); PLATELET COUNT (AUTO) 194.0 K/uL (130-400); RED BLOOD CELL COUNT(AUTO) 4.56 MIL/uL (4.00-5.50); RED CELL DISTRIBUTION WIDTH 13.2 % (11.0-15.5); WHITE BLOOD COUNT (AUTO) 10.2 K/uL (4.8-10.8)
[2025-05-14 10:38] LABS: CREATININE 0.8 mg/dL (0.5-1.0); GLOMERULAR FILTR. RATE CALC 78.0 mL/min (>90); GLUCOSE,RANDOM 113.0 mg/dL (70-105); SODIUM SERUM 139.0 mmol/L (136-145); UREA NITROGEN, BLOOD 14.0 mg/dL (7-18)
[2025-05-14] MEDS: MAGNESIUM 2GM PREMIX 50ML 50 ML IV PRN (11:58)
--- NOTE | 2025-05-14 16:28 | PN ---
[facility] PROGRESS NOTE Date Patient Seen: May 14, 2025 Time of Visit: 16:25 Supervising Physician: JAHAIRA KHAN Primary Care Physician: Dr. Zaida Case Outpatient Specialists: Inpatient Consults: PROBLEM LIST: Atypical chest pain, POA, HIGH RISK Venous stasis ulcers of both lower extremities Failure of outpatient treatment CKD Stage II Hypochloremia Uncontrolled diabetes mellitus Chronic problem list: Coronary artery disease, diabetes-type II, high cholesterol, heart disease, hypertension INTERVAL HISTORY: Patient was seen and examined by me at bedside, the patient is lying in bed, she has had intermittent chest pain throughout her stay but last several sec and resolved spontaneously. Patient's troponin has been negative x2 however the patient does have a strong smoking history, PID wounds on lower extremities, and family history of coronary artery disease in mother, brother. At this time we will proceed with a stress test. Patient is in agreement with such testing. She is established with an outpatient duplicator punch operator, Dr. Winchester and was pending outpatient workup but decided to present given her persistent chest pain. REVIEW OF SYSTEMS: 12 point ROS reviewed with patient. Pertinent positives mentioned above. Otherwise negative. PHYSICAL EXAM: GENERAL: alert, weak, awake oriented x 3 HEENT: EOMI, Sclera non icteric, moist mucosa NECK: Supple, no JVD, trachea midline LUNGS: Clear breath sounds bilaterally. No wheezes HEART: Regular rate and rhythm. Normal S1 and S2, without murmurs ABD: Abdomen soft, nontender. Bowel sounds present EXT: No clubbing cyanosis or edema. Medial stage II ulcer with erythema to medial right calf. One stasis ulcer stage II to left medial cald. No drainage. Distal neurovascular CMS intact. NEURO: Alert and oriented to person, follows commands Vital Signs (last 8hr) Date Time Temp Pulse Resp B/P (MAP) Pulse Ox O2 Delivery O2 Flow Rate FiO2 05/14/25 12:00 98.1 71 18 168/71 99 Room Air 05/14/25 08:45 99 Room Air* 0 21 LABS: Hematology Labs: Test 05/14/25 10:19 05/13/25 10:31 Range/Units White Blood Count 10.2 4.8-10.8 K/uL Red Blood Count 4.56 4.00-5.50 MIL/uL Hemoglobin 14.0 12.0-16.0 g/dL Hematocrit 41.5 36-48 % Mean Corpuscular Volume 91.0 79-99 fL Mean Corpuscular Hemoglobin 30.7 27.0-33.0 pg Mean Corpuscular Hemoglobin Concent 33.7 32.0-36.0 g/dL Red Cell Distribution Width 13.2 11.0-15.5 % Platelet Count 194 130-400 K/uL Mean Platelet Volume 12.8 H 7.5-10.5 fL Nucleated Red Blood Cells 0.0 0.0-0.19 % Immature Granulocyte % (Auto) 0.4 0-1 % Neutrophils (%) (Auto) 77.9 H 40.0-77.0 % Lymphocytes (%) (Auto) 13.2 L 21.0-51.0 % Monocytes (%) (Auto) 6.6 3.0-13.0 % Eosinophils (%) (Auto) 1.2 0.0-8.0 % Basophils (%) (Auto) 0.7 0.0-5.0 % Neutrophils # (Auto) 10.4 H 1.8-7.7 K/uL Lymphocytes # (Auto) 1.8 1.0-4.8 K/uL Monocytes # (Auto) 0.9 0.1-1.0 K/uL Eosinophils # (Auto) 0.16 0.00-0.70 K/uL Basophils # (Auto) 0.10 0.00-0.20 K/uL Absolute Immature Granulocyte (auto 0.05 0-1 K/uL Chemistry Labs: Test 05/14/25 10:19 05/13/25 10:31 Range/Units Sodium Level 139 136-145 mmol/L Potassium Level 3.8 3.5-5.1 mmol/L Chloride Level 99 L 101-111 mmol/L Carbon Dioxide Level 36 H 21-32 mmol/L Blood Urea Nitrogen 14 7-18 mg/dL Creatinine 0.8 0.5-1.0 mg/dL Glomerular Filtration Rate Calc 78 >90 mL/min Random Glucose 113 H 70-105 mg/dL Total Calcium 8.9 8.5-10.1 mg/dL Magnesium Level 1.80 1.80-2.40 mg/dL Troponin I High Sensitivity 29 4-50 ng/L Lactic Acid Level 2.0 0.8-2.5 mmol/L DIAGNOSTICS / RADIOLOGY RESULTS: [ ] PLAN -Obtain wound aerobic and anaerobic cultures. -Follow blood and wound cultures. -Continue Levaquin. -Echo. - Stress test in AM -Aspirin and Atorvastatin. - will benefit from addition of Plavix if no contraindication -PRN medications for pain management, fever, N/V, constipation, hypertension. -Oxygen supplement as needed to maintain oxygen levels equal to or greater than 92% -Strict I&O. -Blood pressure checks every 4 hours and as needed. -Reconcile home medications once available. -Glucometer checks before meals and at bedtime with insulin regular sliding scale. -Blood pressure checks every 4 hours and as needed. - Monitor renal and liver function. -Monitor electrolytes and treat accordingly PRN -AM labs. -GI and DVT prophylaxis -Further plan/orders per hospitalization course. NEURO: Minimize central acting medications as possible. Maintain fall precautions, adequate lighting during the day PULMONARY: Supplemental 02 as needed. Maintain aspiration precautions at all times CARDIOVASCULAR: Follow hemodynamics. Vital signs per facility protocol GI & NUTRITION: Continue with nutritional support. Continue stool softeners and laxatives as needed. KIDNEYS & ELECTROLYTES: Strict monitoring of intake, output and overall fluid balance. Avoid nephrotoxic medications to the extent possible. Medications to be dosed according to renal function. Monitor electrolytes and replace as needed ENDOCRINE: Maintain blood glucose between 100-180 at all times. Hypoglycemia protocol in place INFECTIOUS DISEASE: Trend temperature, WBC and procalcitonin level Follow cultures, deescalate antibiotics as soon as possible. Panculture if new onset fever ONCOLOGY/HEMATOLOGY/COAGULATION: Monitor for s/s of bleeding Monitor hemoglobin, coagulation studies as needed SKIN: Pressure ulcer prevention per facility protocol Specialty mattress ORTHO/REHAB: Continue PT/OT Prophylaxis: Continue GI and DVT prophylaxis Code Status: Full Resuscitation Disposition: TBD Other: Total patient care time exceeds 35 minutes excluding all procedures. MERNA CASTILLO May 14, 2025 16:28
[2025-05-14] MEDS ORDERED: LOVASTATIN PO SCH (17:00)
[2025-05-15] VITALS (7 sets, daily range): BP systolic 139–188; BP diastolic 57–79; PULSE 68–79; RESP 16–19; TEMP 98–98.3; O2SAT 94–95
--- NOTE | 2025-05-15 07:27 | NUR ---
PATIENT TAKEN DOWN FOR LEXISCAN AT THIS TIME. NO SIGNS OF DISTRESS NOTED.
--- NOTE | 2025-05-15 07:48 | HMCSR ---
APPROVED REPORT EXAM: Two-dimensional and M-mode echocardiogram with Doppler and color Doppler. INDICATION ICD: Chest Pain 2D Dimensions RVDd3.0 cmLVEF(%)64.2 (>50%)LA ESV INDEX (BP)44.93 mL/m2 IVSd1.1 (0.7-1.1cm)FS(%)35 % LVDd4.1 (3.8-5.6cm)LA (2D)4.2 (1.6-4.0cm) PWd1.1 (0.7-1.1cm)Ao Root(2D)2.7 (2.0-3.7cm) IVSs1.4 cmLVOT diam1.9 (1.8-2.4cm) LVDs2.7 (2.5-4.0cm)IVC diam1.1 cm PWs1.7 cm Deformation Strain Apical 4-12.9 % Apical 2-13.4 % Apical 3-13.8 % Global Strain-13.4 % M-Mode Dimensions EPSS1.0 cm LA (MM)5.0 (1.6-4.0cm) Ao Root(MM)2.8 (2.0-3.7cm) Aortic Valve AoV Vmax1.6 m/Sammy Peak GR9.7 mmHgLVOT Vmax0.8 m/s AoV VTI0.4 mAo Mean GR4.8 mmHgLVOT VTI0.18 m SRAVANI (VMAX)1.39 cm2AVA (VTI) 1.4 cm2 Mitral Valve MV E Vmax91.3 cm/sDECEL Syra558 ms MV A Vmax82.8 cm/sP 1/2 T62 ms E/A ratio1.1MVA (PHT)3.5 cm2 TDI E/E' Lalzyj10.2E/E' Qzkgigm99.2 Medial E' Peak V3.13 cm/sLateral E' Peak V4.52 cm/s Pulmonary Valve PV Vmax1.0 m/sPV VTI0.22 mPV Mean GR2.2 mmHg PV Peak GR3.7 mmHg Left Ventricle The left ventricle is normal size. GLS -13.0% There is normal LV segmental wall motion. Mild concentr ic left ventricular hypertrophy. There is no ventricular septal defect visualized. LVEF is over 70% T he left ventricular diastolic function is normal. Right Ventricle The right ventricle is normal size. The right ventricular systolic function is normal. Atria The left atrium is moderately dilated. LASVI 45mL/m2 The right atrium size is normal. Aortic Valve The aortic valve is normal in structure. No aortic regurgitation is present. There is no aortic valvu lar stenosis. Mitral Valve The mitral valve is mildly thickened and opens well. There is trace of mitral valve regurgitation not ed. There is no mitral valve stenosis. Tricuspid Valve The tricuspid valve is normal in structure. There is trace of tricuspid valve regurgitation noted. Pulmonic Valve The pulmonary valve is normal in structure. There is no pulmonic valvular regurgitation. Great Vessels The aortic root is normal in size. The IVC is normal in size and collapses >50% with inspiration. Pericardium There is no pericardial effusion. Other Information Quality : Adequate Conclusion LVEF is over 70% GLS -13.0% There is normal LV segmental wall motion. Mild concentric left ventricular hypertrophy. The left atrium is moderately dilated. LASVI 45mL/m2 The mitral valve is mildly thickened and opens well.
[2025-05-15] MEDS: REGADENOSON 0.4 MG/5 ML PF SYG IVP ONE (08:30)
--- NOTE | 2025-05-15 08:34 | NUR ---
PATIENT BACK FROM [facility]. NO SIGNS OF DISTRESS NOTED.
--- NOTE | 2025-05-15 16:07 | HMCSR ---
APPROVED REPORT Height: 5 ft 3in Weight: 145 lbs TEST INDICATIONS Chest Pain The imaging protocol used to acquire images was Rest Tc-99m/stress Tc-99m 1 day Consent: The procedure was explained and understood by the patient. Informerd consent was witnessed Alphonse Diallo RN First, low dose rest was performed then high dose stress. RESTING DATA: The resting ekg shows: NSR RBBB Rest SPECT myocardial perfusion imaging was performed in supine position minutes following the intra venous injection of 11 mCi of Myoview. Time of rest injection: Date: 05/15/2025 Time of rest imaging: Date: 05/15/2025 PHARMACOLOGIC STRESS: Pharmacologic stress test was performed by injecting regadenoson 0.4 mg IV push followed by the intra venous injection of 30 mCi of Myoview. Time of stress injection: Date: 05/15/2025 Time of stress imaging: Date: 05/15/2025 Heart Rate at time of stress injection: 63 bpm. The images were gated to evaluate regional wall motion and calculate left ventricular ejection fracti on. STRESS DETAILS Reason for Termination: Infusion complete Stress Symptoms: Nausea Max HR Achieved: 94 bpm % of APMHR Achieved: 75 Max Blood Pressure: 187/78 mmHg Stress ECG: NSR RBBB with isolated PVCs Arrhythmia: Yes. isolated PVCs Study quality was good. Lung uptake was Normal. Artifact: No artifact LEFT VENTRICLE Size: The left ventricular size is normal. Systolic Function:The left ventricular systolic function is normal. Wall Motion: No regional wall motion abnormalities noted. The left ventricular ejection fraction was calculated to be 58%.TID = 1.20. LV PERFUSION Small size moderate severity fixed perfusion defect at the apex. Small size mild severity reversible perfusion defect of the mid lateral wall. Summed stress score of 2. RV Size/Shape Not well visualized. IMPRESSION Mildly abnormal pharmacologic nuclear stress test. Global LV Function: Normal Stress ECG Summary: Normal LV Perfusion Summary: Abnormal Conclusion Stress LVEF normal at 58% TID is 1.20, normal Small size moderate severity fixed perfusion defect at the apex. Small size mild severity reversible perfusion defect of the mid lateral wall. Summed stress score of 2, with results indicating low risk for cardiac events
--- NOTE | 2025-05-15 21:01 | PN ---
[facility] PROGRESS NOTE Date Patient Seen: May 15, 2025 Time of Visit: 1341 Supervising Physician: Dr. Ozuna Primary Care Physician: Dr. Zaida Case Outpatient Specialists: Inpatient Consults: PROBLEM LIST: Atypical chest pain, POA, heart score six Venous stasis ulcers of both lower extremities Failure of outpatient treatment CKD Stage II Hypochloremia Diabetes mellitus type 2 with hyperglycemia Hyperlipidemia Hypertension Coronary artery disease Left ventricular ejection fraction greater than 70% per echocardiogram 05/14/2025 INTERVAL HISTORY: 05/15 patient was seen and examined at bedside with no family present. Patient is awake alert able to answer simple questions appropriately. Patient denies any reoccurrence chest pain. Patient currently pending results from stress test. We will follow up with results if unremarkable plan is for discharge. Patient's WBCs trending down 10.2 Upon admission 13.4. Patient denies any nausea vomiting or abdominal pain. Has remained hemodynamically stable. Blood cultures have been negative for two days. As per primary nurse no acute events to be reported REVIEW OF SYSTEMS: 12 point ROS reviewed with patient. Pertinent positives mentioned above. Otherwise negative. PHYSICAL EXAM: GENERAL: alert, weak, awake oriented x 3 HEENT: EOMI, Sclera non icteric, moist mucosa NECK: Supple, no JVD, trachea midline LUNGS: Clear breath sounds bilaterally. No wheezes HEART: Regular rate and rhythm. Normal S1 and S2, without murmurs ABD: Abdomen soft, nontender. Bowel sounds present EXT: No clubbing cyanosis or edema. Medial stage II ulcer with erythema to medial right calf. One stasis ulcer stage II to left medial cald. No drainage. Distal neurovascular CMS intact. NEURO: Alert and oriented to person, follows commands Vital Signs (last 8hr) Date Time Temp Pulse Resp B/P (MAP) Pulse Ox O2 Delivery O2 Flow Rate FiO2 05/15/25 20:00 98.1 79 18 147/57 94 Room Air 05/15/25 16:00 98.2 70 16 188/78 94 Room Air 21 LABS: Hematology Labs: Test 05/14/25 10:19 Range/Units White Blood Count 10.2 4.8-10.8 K/uL Red Blood Count 4.56 4.00-5.50 MIL/uL Hemoglobin 14.0 12.0-16.0 g/dL Hematocrit 41.5 36-48 % Mean Corpuscular Volume 91.0 79-99 fL Mean Corpuscular Hemoglobin 30.7 27.0-33.0 pg Mean Corpuscular Hemoglobin Concent 33.7 32.0-36.0 g/dL Red Cell Distribution Width 13.2 11.0-15.5 % Platelet Count 194 130-400 K/uL Mean Platelet Volume 12.8 H 7.5-10.5 fL Nucleated Red Blood Cells 0.0 0.0-0.19 % Chemistry Labs: Test 05/14/25 10:19 Range/Units Sodium Level 139 136-145 mmol/L Potassium Level 3.8 3.5-5.1 mmol/L Chloride Level 99 L 101-111 mmol/L Carbon Dioxide Level 36 H 21-32 mmol/L Blood Urea Nitrogen 14 7-18 mg/dL Creatinine 0.8 0.5-1.0 mg/dL Glomerular Filtration Rate Calc 78 >90 mL/min Random Glucose 113 H 70-105 mg/dL Total Calcium 8.9 8.5-10.1 mg/dL Magnesium Level 1.80 1.80-2.40 mg/dL Troponin I High Sensitivity 29 4-50 ng/L DIAGNOSTICS / RADIOLOGY RESULTS: na PLAN Follow up with stress test Continue mg daily Continue atorvastatin 40 mg q.h.s. Continue to monitor via telemetry Follow up blood cultures negative x2 days Continue Levaquin 750 mg daily If stress test unremarkable plan for discharge tomorrow morning NEURO: Minimize central acting medications as possible. Maintain fall precautions, adequate lighting during the day PULMONARY: Supplemental 02 as needed. Maintain aspiration precautions at all times CARDIOVASCULAR: Follow hemodynamics. Vital signs per facility protocol GI & NUTRITION: Continue with nutritional support. Continue stool softeners and laxatives as needed. KIDNEYS & ELECTROLYTES: Strict monitoring of intake, output and overall fluid balance. Avoid nephrotoxic medications to the extent possible. Medications to be dosed according to renal function. Monitor electrolytes and replace as needed ENDOCRINE: Maintain blood glucose between 100-180 at all times. Hypoglycemia protocol in place INFECTIOUS DISEASE: Trend temperature, WBC and procalcitonin level Follow cultures, deescalate antibiotics as soon as possible. Panculture if new onset fever ONCOLOGY/HEMATOLOGY/COAGULATION: Monitor for s/s of bleeding Monitor hemoglobin, coagulation studies as needed SKIN: Pressure ulcer prevention per facility protocol Specialty mattress ORTHO/REHAB: Continue PT/OT Prophylaxis: Continue GI and DVT prophylaxis Code Status: Full Resuscitation Disposition: TBD Other: Case discussed with supervising physician plan of care agreed upon SACHI PATEL May 15, 2025 21:01
[2025-05-16] VITALS (7 sets, daily range): BP systolic 150–177; BP diastolic 56–88; PULSE 70–90; RESP 16–20; TEMP 98–98.1; O2SAT 96
--- NOTE | 2025-05-16 01:58 | NUR ---
PATIENT C/O SHOOTING PAIN TO LEFT LOWER ARM RADIATING TO UPPER ARM. GOT AN ORDER FOR MORPHINE 2MG IV X1 FROM APRIL JENSEN ([facility]). PT. REFUSED MED, STATES "SHE'S FEELING BETTER RIGHT NOW,SHE WILL LET ME KNOW IF SHE STILL NEEDS IT LATER". WILL CONTINUE TO MONITOR. PT. RESTING COMFORTABLY IN BED.
--- NOTE | 2025-05-16 08:00 | NUR ---
EMESIS. PATIENT CALLED ME IN THE ROOM. SHE HAD AN EPISODE OF MILD EMESIS AFTER EATING BREAKFAST. ZOFRAN ADMINISTERED. NO COMPLAINTS OF CHEST PAIN AT THIS TIME. WILL MONITOR THE PATIENT FOR ANY MORE EPISODES AND LET MD BE AWARE.
--- NOTE | 2025-05-16 14:11 | NUR ---
[facility] Consult: Patient assessed by wound healing team. See wound assessment. Assessment and recommendations provided to primary nurse. Education provided. Addendum: 05/17/25 at 1401 by ERICK ANNE RN RN/ Amended: Links added.
[2025-05-16 14:21] LABS: NUCLEATED RED BLOOD CELLS 0.0 % (0.0-0.19); PLATELET COUNT (AUTO) 201.0 K/uL (130-400); RED BLOOD CELL COUNT(AUTO) 4.66 MIL/uL (4.00-5.50); RED CELL DISTRIBUTION WIDTH 13.3 % (11.0-15.5); WHITE BLOOD COUNT (AUTO) 7.4 K/uL (4.8-10.8)
[2025-05-16 14:48] LABS: CREATININE 0.7 mg/dL (0.5-1.0); GLOMERULAR FILTR. RATE CALC 92.0 mL/min (>90); GLUCOSE,RANDOM 212.0 mg/dL (70-105); SODIUM SERUM 138.0 mmol/L (136-145); UREA NITROGEN, BLOOD 11.0 mg/dL (7-18)
[2025-05-16] MEDS ORDERED: HONEY 1 APPL/ML TUBE TP SCH (17:00)
--- NOTE | 2025-05-16 17:30 | NUR ---
PATIENT IS DISCHARGED. IV TAKEN OUT WITH CATHETER INTACT. EDUCATION GIVEN TO PATIENT. REPORT CALLED TO JHONNY MAYS AT [facility]. CURRENTLY WAITING FOR MEDIHONEY FROM PHARMACY SO WOUND CARE CAN BE DONE BEFORE PATIENT DEPARTURE.
--- NOTE | 2025-05-16 19:04 | DS ---
[facility] DISCHARGE SUMMARY Date Patient Seen: May 16, 2025 Time of Visit: 1323 Supervising Physician: Dr. Ozuna Primary Care Physician: Dr. Zaida Case Outpatient Specialists: Inpatient Consults: PROBLEM LIST: Atypical chest pain, POA, heart score six, resolved stress test unremarkable Venous stasis ulcers of both lower extremities Failure of outpatient treatment, we will follow up with the Wound Care outpatient CKD Stage II Hypochloremia Diabetes mellitus type 2 with hyperglycemia Hyperlipidemia Hypertension Coronary artery disease Left ventricular ejection fraction greater than 70% per echocardiogram 05/14/2025 HOSPITAL COURSE: HPI (per admitting provider) Ms. Medrano is a 74 year old female with a history of coronary artery disease, diabetes-type II, high cholesterol, heart disease, hypertension who presented with [facility] via EMS for evaluation of substernal chest pain that does not radiate onset this morning. She denies nausea and vomiting. The patient reports chronic shortness of breath with exertion that is the same. Patient report that she has wounds in her bilateral lower distal extremities, but have improved. VS: HR 66 bpm, RR 20 bpm, BP 130/82, 99% RA, 98.1 F. Labs: Chemistry: Chloride 100, Carbon Dioxide 34, Random Glucose 179, Magnesium 1.70, Hematology: WBC 13.4, MPV 12.6, Chest X-Ray: No acute cardiopulmonary pathology is evident. EKG: Sinus rhythm, right BBB. Patient was seen and examined by bedside with no family present. Patient is awake alert able to answer simple questions appropriately. Patient denies any reoccurrence chest pain. Denies any shortness of breadth. Denies any nausea vomiting or abdominal pain. Patient's labs this morning unremarkable. Patient's blood cultures have been negative for three days. Patient's stress test reports some stress score of two with results indicating low risk of cardiac events. Patient reports feeling better. Instructed patient will be getting discharged today and will need to follow up with PCP within 3-5 days upon discharge, along with following up with her wood science professor within 3-5 days u codi discharge. Patient voices understanding and agrees with plan also instructed patient to follow up with wound care outpatient patient voices understanding and agrees with plan has no questions at this time The patient was treated for the following problems: ACTIVE PROBLEM LIST FOR THE HOSPITALIZATION: CHRONIC PROBLEMS: continue previous management per PCP unless otherwise indicated HISTORY FACULTY MEMBER FINDINGS/RECOMMENDATIONS: na PROCEDURES: as mentioned above DISCHARGE MEDICATIONS: Pt hemodynamically stable and afebrile at time of discharge. PCP notified of patients admission, hospital course and discharge. Continued Medications: Azithromycin (Azithromycin) 500 Mg Tablet 1 TAB PO DAILY for 1 DAILY Tuesday for 5 Days, #5 TAB 0 Refills Clonidine (Clonidine) 0.1 Mg/24 Hour Patch.tdwk 1 EACH TD BID PRN for IF SBP GREATER THAN 160 Duloxetine HCl (Duloxetine HCl) 30 Mg Capsule.dr 1 CAP PO DAILY for 30 Days, #30 CAP 0 Refills Empagliflozin (Jardiance) 10 Mg Tablet 10 MG PO DAILY, TAB Lovastatin (Lovastatin) 20 Mg Tablet 1 TAB PO DAILYDINNER for 30 Days, #30 TAB 0 Refills Metformin HCl (Metformin HCl) 500 Mg Tablet 1 TAB PO BID for 30 Days, #60 TAB 0 Refills Montelukast Sodium (Singulair 10Mg) 10 Mg Tab 1 TAB PO DAILY for 30 Days, #30 TAB 0 Refills Olmesartan Medoxomil (Olmesartan Medoxomil) 40 Mg Tablet 1 TAB PO DAILY for 30 Days, #30 TAB 0 Refills Pregabalin (Pregabalin) 25 Mg Capsule 25 MG PO TID PRN for 1CAP AM 1 CAP LUNCH 2 CAP HS, CAP Triamcinolone Acetonide (Triamcinolone Acetonide) 0.05 % Oint...g. 1 APPL TP BID for TO TOP OF HEAD for 14 Days, #110 GM 0 Refills PHYSICAL EXAM: GENERAL: alert, weak, awake oriented x 3 HEENT: EOMI, Sclera non icteric, moist mucosa NECK: Supple, no JVD, trachea midline LUNGS: Clear breath sounds bilaterally. No wheezes HEART: Regular rate and rhythm. Normal S1 and S2, without murmurs ABD: Abdomen soft, nontender. Bowel sounds present EXT: No clubbing cyanosis or edema. Medial stage II ulcer with erythema to medial right calf. One stasis ulcer stage II to left medial cald. No drainage. Distal neurovascular CMS intact. NEURO: Alert and oriented to person, follows commands FOLLOW-UP: Follow-up with PCP in 2-3 days Follow up with wood science professor within 3-5 days upon discharge Follow up with wound care within 3-5 days upon discharge RECOMMENDATIONS: See Discharge Instructions This case was seen and discussed with my supervising physician. 35 minutes spent on discharge process, including evaluation of the patient, discussion with nursing staff, medication reconciliation and follow-up appointments SACHI PATEL May 16, 2025 19:04
== END 2025-05-16 18:10 | disposition home or self-care (01) ==
LOC: EDH 09:59 → INTOOBSV 15:38 → UNDOADMOB 15:38 → EDHIP 15:38 → 4CH 05-14 03:34 → EDHIP 05-16 12:50
PROVIDERS: ADMIT Internal Medicine Critical Care Medicine; ATTEND Internal Medicine Critical Care Medicine
DX: R07.89 Other chest pain (principal); I83.019 Varicose veins of right lower extremity with ulcer of unspecified site; I12.9 Hypertensive chronic kidney disease with stage 1 through stage 4 chronic kidney disease, or unspecified chronic kidney disease; E11.22 Type 2 diabetes mellitus with diabetic chronic kidney disease; N18.2 Chronic kidney disease, stage 2 (mild); I83.209 Varicose veins of unspecified lower extremity with both ulcer of unspecified site and inflammation; N17.9 Acute kidney failure, unspecified; E11.65 Type 2 diabetes mellitus with hyperglycemia; E86.0 Dehydration; E78.00 Pure hypercholesterolemia, unspecified; I25.10 Atherosclerotic heart disease of native coronary artery without angina pectoris; E87.20 Acidosis, unspecified; I45.10 Unspecified right bundle-branch block; Z88.0 Allergy status to penicillin
CPT/HCPCS: 96366 ×5; 99285; 83735 ×2; 84484 ×5; 80048 ×3; 85025; 87040 ×2; 83605; 36415 ×3; 71045; 96365; 93005; 96375 ×2; 96367; 85027 ×2; 93306; 93356; 76376; 93017; 78452; 87070; 87076; 82948; J1956 ×4; J3475; J2785; A9500 ×2; G0378 ×5; J0360; J2405